=== PATIENT | male | born 1975 | race Caucasian/White ===

== ENCOUNTER 2016-08-18 12:25 | Emergency (ER) | payer OTHER ==
[~2016-08-18] VITALS: Ht 162.6 cm; Wt 74.0 kg
[~2016-08-18 12:25] MED LIST: DENIES
[2016-08-18 12:32] VITALS: Ht 162.6 cm; Wt 74.0 kg
[2016-08-18] MEDS ORDERED: IBUP-1542 PO (12:55)
[2016-08-18] MEDS ORDERED: CEPH-443 PO (12:55)
[2016-08-18] MEDS ORDERED: BACTDS PO (12:55)
--- NOTE | 2016-08-18 13:55 | ERD ---
ER Documentation Chief Complaint Date/Time DATE: 08/18/16 TIME: 13:52 Chief Complaint pain and swelling right hand/arm; possible insect bite HPI Patient is a 41-year-old male with no medical problems who presents with right- sided arm pain. He said that he woke up this morning with right-sided arm pain. He said that he was "bit on the right hand" 2 days ago by an insect. He said that he did not see what bit him. He is right-handed. He tried Tylenol for pain. He has had no fevers. He does not currently have a primary doctor. He has full range of motion of the right upper extremity and there is no obvious swelling. The patient says he was able to push on the right hand around the area of the bite and was able to push out some pus. ROS All systems reviewed and are negative except as per history of present illness. Medications Home Meds Active Scripts Ibuprofen* (Motrin*) 600 Mg Tab, 600 MG PO Q6H Y for PAIN AND OR ELEVATED TEMP, #30 TAB Prov:ZOEY TAMAYO MD 08/18/16 Sulfamethoxazole-Trimethoprim* (Bactrim* DS) 800-160 Mg Tab, 1 TAB PO BID for 7 Days, TAB Prov:ZOEY TAMAYO MD 08/18/16 Cephalexin* (Keflex*) 500 Mg Capsule, 500 MG PO QID for 7 Days, CAP Prov:ZOEY TAMAYO MD 08/18/16 Reported Medications [Denies] No Conflict Check 08/12/10 Allergies Allergies: Coded Allergies: No Known Drug Allergies (Verified Allergy, Mild, 09/08/10) PMhx/Soc Medical and Surgical Hx: pt denies Medical Hx History of Surgery: No Anesthesia Reaction: No Hx Neurological Disorder: No Hx Respiratory Disorders: No Hx Cardiac Disorders: No Hx Psychiatric Problems: No Hx Miscellaneous Medical Probl: No Hx Alcohol Use: Yes Hx Substance Use: No Hx Tobacco Use: Yes Smoking Status: Current some day smoker FmHx Family History: No diabetes Physical Exam Vitals Vital Signs Date Time Temp Pulse Resp B/P Pulse Ox O2 Delivery O2 Flow Rate FiO2 08/18/16 12:32 97.8 100 18 158/99 96 Physical Exam Const: No acute distress Head: Atraumatic Eyes: Normal Conjunctiva ENT: Normal External Ears, Nose and Mouth. Neck: Full range of motion..~ No meningismus. Resp: Clear to auscultation bilaterally Cardio: Regular rate and rhythm, no murmurs Abd: Soft, non tender, non distended. Normal bowel sounds Skin: Abrasion versus bug bite to the right lateral hand, mild warmth to touch Back: No midline or flank tenderness Ext: No cyanosis, or edema, no obvious swelling of the right upper extremity compared to the left Neur: Awake and alert Psych: Normal Mood and Affect Procedures/MDM Smoking Cessation Therapy: Pt. was lectured for greater than 3 minutes on the health risks of continued smoking and the benefits of cessation. Patient is a 41-year-old male with no medical problems other than smoking who presents with right upper extremity pain. He had a bite to the right hand 2 days ago. I will treat him as a cellulitis but at this point I see no signs of abscess. I doubt DVT. I believe outpatient management is appropriate. The patient has good pulses in the upper extremities bilaterally as well as good capillary refill. I see no signs of vascular compromise. All 3 nerve roots of the right upper extremity are intact. The patient will be discharged with prescription for Keflex and Bactrim as well as ibuprofen for pain and inflammation. The patient could return for any worsening symptoms. He should follow-up the local clinics within 48 hours for recheck. Departure Diagnosis: Primary Impression: Cellulitis Site of cellulitis: extremity Site of cellulitis of extremity: upper extremity Laterality: right Qualified Code: L03.113 - Cellulitis of right upper extremity Additional Impression: Pain of right arm Condition: Fair Patient Instructions: Cellulitis Referrals: [facility] YOU HAVE RECEIVED A MEDICAL SCREENING EXAM AND THE RESULTS INDICATE THAT YOU DO NOT HAVE A CONDITION THAT REQUIRES URGENT TREATMENT IN THE EMERGENCY DEPARTMENT. FURTHER EVALUATION AND TREATMENT OF YOUR CONDITION CAN WAIT UNTIL YOU ARE SEEN IN YOUR DOCTORS OFFICE WITHIN THE NEXT 1-2 DAYS. IT IS YOUR RESPONSIBILITY TO MAKE AN APPOINTMENT FOR FOLOW-UP CARE. IF YOU HAVE A PRIMARY DOCTOR --you should call your primary doctor and schedule an appointment IF YOU DO NOT HAVE A PRIMARY DOCTOR YOU CAN CALL OUR PHYSICIAN REFERRAL HOTLINE AT IF YOU CAN NOT AFFORD TO SEE A PHYSICIAN YOU CAN CHOSE FROM THE FOLLOWING [facility] [id number] [facility]. [facility] [address] [facility] [facility] [address] [facility] [address] [facility] [address] [facility]. [facility] [address] Additional Instructions: Call your primary care doctor TOMORROW for an appointment during the next 1-2 days.See the doctor sooner or return here if your condition worsens before your appointment time. ZOEY TAMAYO MD Aug 18, 2016 13:55
== END 2016-08-18 14:01 | disposition home or self-care (01) ==
LOC: FTE 12:25
DX: L03.113 Cellulitis of right upper limb (principal); F17.210 Nicotine dependence, cigarettes, uncomplicated
CPT/HCPCS: 99284

== ENCOUNTER 2017-01-28 12:27 | Emergency (ER) | payer OTHER ==
[~2017-01-28] VITALS: Ht 165.1 cm; Wt 75.0 kg
[~2017-01-28 12:27] MED LIST changes: +BACTDS PO; +CEPH-443 PO; +IBUP-1542 PO
[2017-01-28 13:10] VITALS: Ht 165.1 cm; Wt 75.0 kg
[2017-01-28] MEDS ORDERED: IBUPROFEN 600 MG TAB PO ONE (15:00)
[2017-01-28] MEDS ORDERED: HYDROCODONE/APAP (5/325) TAB PO ONE (15:00)
[2017-01-28] MEDS ORDERED: CIPROFLOXACIN 500 MG TAB PO ONE (16:00)
[2017-01-28] MEDS ORDERED: AZITHROMYCIN 250 MG TAB PO ONE (16:00)
[2017-01-28] MEDS ORDERED: CEFTRIAXONE 500 MG INJ IM ONE (16:00)
[2017-01-28] MEDS ORDERED: LIDOCAINE 1% (MDV) 20 ML INJ SC ONE (16:00)
--- NOTE | 2017-01-28 16:00 | RADRPT ---
PROCEDURE: US Scrotal CLINICAL INDICATION: Left testicular pain TECHNIQUE: Images were taken during real time interrogation of the scrotum. Color Doppler was also performed. COMPARISON: None FINDINGS: Right Testicle: Is normal in size measuring 4.0 x 3.0 x 2.2 cm No mass is identified. The echotexture is normal. There is normal vascular flow on color Doppler. There is no hydrocele. No varicocele is evident. Left testicle: Is normal in size measuring 3.5 x 2.7 x 2.2 cm No mass is identified and The echotexture appears normal. There is normal vascular flow on color Doppler. There is no hydrocele. No varicocele is identified. Right Epidydemus: Appears normal. Left Epedidymus: There is a 1.1 x 1.0 x 0.8 cm cyst in the left epididymal head. There is hypervascularity involving the left epididymis suspicious for a epididymitis. IMPRESSION: 1. Normal appearing testicles bilaterally. There is no intratesticular mass and normal vascular edgar w is demonstrated in each testicle. 2. Hypervascularity to the left epididymis suspicious for left epididymitis. There is a 1.1 x 1.0 x 0.8 cm cyst within the left epididymal head. The right epididymis appears normal. Physician Irma Date Time Electronically viewed and signed by Physician Irma on 01/28/2017 16:00 /
[2017-01-28] MEDS ORDERED: TRAM50TA2 PO (16:01)
[2017-01-28] MEDS ORDERED: IBUP-1542 PO (16:01)
[2017-01-28] MEDS ORDERED: CIPR500T4 PO (16:01)
--- NOTE | 2017-01-28 16:04 | ERD ---
ER Documentation Chief Complaint Date/Time DATE: 01/28/17 TIME: 16:02 Chief Complaint left testicular pain and ap starting this morning HPI This 41-year-old male complains of swelling and pain in the left testicle worsening over the last few days. He has some possible dysuria. He possibly has some clearish discharge but no purulent discharge. Denies any fevers, vomiting or abdominal pain. He denies any history of trauma ROS All systems reviewed and are negative except as per history of present illness. Medications Home Meds Active Scripts Ibuprofen* (Motrin*) 600 Mg Tab, 600 MG PO Q6, #20 TAB Prov:FRANCISCO J SHELL MD 01/28/17 Tramadol HCl (Tramadol HCl) 50 Mg Tablet, 50 MG PO Q4 Y for PAIN, #15 TAB Prov:FRANCISCO J SHELL MD 01/28/17 Ciprofloxacin Hcl* (Ciprofloxacin Hcl*) 500 Mg Tablet, 500 MG PO BID for 10 Days , TAB Prov:FRANCISCO J SHELL MD 01/28/17 Ibuprofen* (Motrin*) 600 Mg Tab, 600 MG PO Q6H Y for PAIN AND OR ELEVATED TEMP, #30 TAB Prov:ZOEY TAMAYO MD 08/18/16 Sulfamethoxazole-Trimethoprim* (Bactrim* DS) 800-160 Mg Tab, 1 TAB PO BID for 7 Days, TAB Prov:ZOEY TAMAYO MD 08/18/16 Cephalexin* (Keflex*) 500 Mg Capsule, 500 MG PO QID for 7 Days, CAP Prov:ZOEY TAMAYO MD 08/18/16 Reported Medications [Denies] No Conflict Check 08/12/10 Allergies Allergies: Coded Allergies: No Known Drug Allergies (Verified Allergy, Mild, 09/08/10) PMhx/Soc History of Surgery: No Anesthesia Reaction: No Hx Neurological Disorder: No Hx Respiratory Disorders: No Hx Cardiac Disorders: No Hx Psychiatric Problems: No Hx Miscellaneous Medical Probl: No Hx Alcohol Use: Yes Hx Substance Use: No Hx Tobacco Use: Yes Physical Exam Vitals Vital Signs Date Time Temp Pulse Resp B/P Pulse Ox O2 Delivery O2 Flow Rate FiO2 01/28/17 13:10 100.7 108 18 140/84 97 Physical Exam Const: []Alert, [id number] per Head: Atraumatic Eyes: Normal Conjunctiva ENT: Normal External Ears, Nose and Mouth. Neck: Full range of motion..~ No meningismus. Resp: Clear to auscultation bilaterally Cardio: Regular rate and rhythm, no murmurs Abd: Soft, non tender, non distended. Normal bowel sounds. There is some tenderness and swelling on the left hemiscrotum primarily along the epididymis. There is no evidence of external lesions, rashes, penile discharge. Skin: No petechiae or rashes Back: No midline or flank tenderness Ext: No cyanosis, or edema Neur: Awake and alert Psych: Normal Mood and Affect Results 24 hrs Current Medications Medications (Trade) Dose Ordered Sig/Kenzie Route PRN Reason Start Time Stop Time Status Last Admin Dose Admin Acetaminophen/ Hydrocodone Bitart (Magnolia (5/325)) 1 tab ONCE ONCE PO 01/28/17 15:00 01/28/17 15:01 DC 01/28/17 15:14 Ibuprofen (Motrin) 600 mg ONCE ONCE PO 01/28/17 15:00 01/28/17 15:01 DC 01/28/17 15:15 Ceftriaxone Sodium (Rocephin) 500 mg ONCE ONCE IM 01/28/17 16:00 01/28/17 16:00 DC Lidocaine (Xylocaine 1% (Mdv) 20 ml) 20 ml ONCE ONCE SC 01/28/17 16:00 01/28/17 16:01 Azithromycin (Zithromax) 1,000 mg ONCE ONCE PO 01/28/17 16:00 01/28/17 16:00 DC Ciprofloxacin (Cipro) 500 mg ONCE ONCE PO 01/28/17 16:00 01/28/17 16:01 UNV Procedures/MDM Scrotal ultrasound shows epididymitis without evidence of torsion or additional acute abnormalities. Urine was sent for gonorrhea chlamydia. Patient was given Magnolia 5 mg by mouth, ibuprofen 600 mg and Cipro 500 mg by mouth. Urine was sent for gonorrhea chlamydia. Patient will be treated for epididymitis and return precautions for any worsening pain. Is also advised to have primary care neurology follow-up. Patient shows no evidence of torsion but is advised to return for worsening pain, swelling, new worsening symptoms. Departure Diagnosis: Primary Impression: Epididymitis Condition: Stable Patient Instructions: Epididymitis Referrals: TANK ROSSI MD,OMI RAMIREZ,ROSINA Dunbar MD Additional Instructions: Ultrasound confirms epididymitis. Recheck with primary doctor and possibly urology. Recheck sooner for new or worsening symptoms. FRANCISCO J SHELL MD Jan 28, 2017 16:04
[2017-01-28 16:06] LABS: ADD UMIC YES; UR ASCORBIC ACID NEGATIVE (NEGATIVE); UR BACTERIA FEW /HPF (NONE SEEN); UR BILIRUBIN (Dip) NEGATIVE (NEGATIVE); UR BLOOD (Dip) 2+ mg/dL (NEGATIVE); UR CLARITY CLOUDY (CLEAR); UR COLOR AMBER (YELLOW); UR GLUCOSE (Dip) NEGATIVE (NEGATIVE); UR KETONES (Dip) TRACE mg/dL (NEGATIVE); UR LEUKOCYTE ESTERASE (Dip) 3+ Leu/ul (NEGATIVE); UR MUCUS MODERATE /HPF (NONE SEEN); UR NITRITE (Dip) NEGATIVE (NEGATIVE); UR RBC 130 /HPF (0-5); UR TOTAL PROTEIN (Dip) 2+ mg/dl (NEGATIVE); UR UROBILINOGEN (Dip) NEGATIVE (NEGATIVE); UR WBC CLUMPS FEW /HPF (NONE SEEN)
== END 2017-01-28 16:50 | disposition home or self-care (01) ==
LOC: FTE 12:27
DX: N45.1 Epididymitis (principal); Z87.891 Personal history of nicotine dependence
CPT/HCPCS: 76870; 81001; 87591; Z7502; Z7610

== ENCOUNTER 2017-07-18 19:04 | Emergency (ER) | END 2017-07-18 22:47 | disposition home or self-care (01) ==

== ENCOUNTER 2017-08-24 06:57 | Emergency (ER) | END 2017-08-24 07:56 | disposition home or self-care (01) ==

== ENCOUNTER 2019-03-18 01:07 | Emergency (ER) | payer MEDICAID, OTHER ==
[~2019-03-18] VITALS: Ht 160 cm; Wt 77.6 kg
[~2019-03-18 01:07] MED LIST changes: +AMLO-218 PO; +CIPR500T4 PO; +HYDR-4011 PO; +IBUP800T48 PO; +SULF1TAB31 PO; +TRAM50TA2 PO
[2019-03-18 01:13] VITALS: Ht 160 cm; Wt 77.6 kg
[2019-03-18 01:26] VITALS: BP 171/95; PULSE 82; RESP 22
[2019-03-18] MEDS ORDERED: NICARDipine HCL 30 MG CAPSULE PO ONE (02:00)
== END 2019-03-18 01:55 | disposition home or self-care (01) ==
LOC: E/R 01:07
DX: I10 Essential (primary) hypertension (principal); F17.210 Nicotine dependence, cigarettes, uncomplicated
CPT/HCPCS: Z7502; Z7610; 99283